=== PATIENT | female | born 1940 | race Caucasian/White ===

== ENCOUNTER → 2023-06-25 14:37 | Outpatient (REF) | payer OTHER, SELFPAY | LOC: HWRAD 14:37 | PROVIDERS: ATTENDING PHYSICIAN Family Medicine | DX: M25.552 Pain in left hip (principal) | CPT/HCPCS: 73502 ==

== ENCOUNTER → 2023-07-17 14:40 | Outpatient (REF) | payer OTHER, SELFPAY | LOC: HWWDC 14:40 | PROVIDERS: ATTENDING PHYSICIAN Obstetrics & Gynecology; FAMILY PHYSICIAN Family Medicine | DX: Z12.31 Encounter for screening mammogram for malignant neoplasm of breast (principal) | CPT/HCPCS: 77063; 77067 ==

== ENCOUNTER 2024-05-15 20:01 | Inpatient (IN) | payer OTHER, SELFPAY ==
[2024-05-15 14:32] VITALS: BP 179/76
--- NOTE | 2024-05-15 14:34 | ED.GENMED ---
ED Provider Triage
<Jay Jay Chin PA-C - Last Filed: 05/15/24 14:36>
-
Patient seen by provider in Triage?: Seen in Triage
84-year-old female presents for onset of confusion and difficulty controlling both hands and not knowing what is going on starting yesterday. She also notes intermittent left-sided headache. No thinners.
Patient is alert and answering questions at triage. Vital signs are stable. Will start workup with basic labs EKG and CT of head. Also ordered urinalysis
Patient evaluated by medical provider at triage but does warrant further assessment
History of Present Illness
<Jay Jay Chin PA-C - Last Filed: 05/15/24 14:36>
General
Chief Complaint: Change in Mental Status
Time Seen by Provider: 05/15/24 17:21
<Silvana Woodard MD - Last Filed: 05/15/24 22:50>
General
Source: patient
Exam Limitations: none
Nursing documentation reviewed up to this point in time: agreed with
History of Present Illness
History of Present Illness:
The patient is an 84-year-old female who reports that over the last 2 days, she has had difficulty performing simple tasks such as turning doorknobs and using the TV remote. Patient denies difficulty getting words out. She denies vision changes.
She reports she has had an intermittent left-sided headache. She denies difficulty walking. She has noticed some difficulty using her right hand but states it is not specifically weakness more of loss of coordination.
Past History
<Jay Jay Chin PA-C - Last Filed: 05/15/24 14:36>
Past History
ED Past Medical History: Cancer (Skin), HTN and Hypercholesterolemia
ED Past Surgical History: Tonsilectomy and Other (Vein stripping both legs, skin cancer removed from left leg, vein closure bilateral leg)
Social History
Tobacco: Former smoker
Alcohol: None
Drug: None
Personal:
Living: with family
<Silvana Woodard MD - Last Filed: 05/15/24 22:50>
Family History
Family History: Other
Review of Systems
<Silvana Woodard MD - Last Filed: 05/15/24 22:50>
Review of Systems
Allergies reviewed?: Yes
All Other Systems: ROS reviewed and negative except as documented in HPI and ROS
Constitutional: Reports no symptoms
EENT: Reports no symptoms
Respiratory: Reports no symptoms
Cardiac: Reports no symptoms
ABD/GI: Reports no symptoms
: Reports no symptoms
Musculoskeletal: Reports no symptoms
Skin: Reports no symptoms
Neurological: Reports headache
Endocrine: Reports no symptoms
Hematologic/Lymphatic: Reports no symptoms
Psychiatric: Reports no symptoms
Phy Exam
<Silvana Woodard MD - Last Filed: 05/15/24 22:50>
Physical Exam
Physical Exam:
Physical Exam
General: no apparent distress, not acutely ill
Neck: supple. no meningeal signs. normal psoterior pharynx
Heart: s1/s2 regular rate and rhythm, no murmur. equal radial pulses.
Lungs: no acute respiratory distress. clear bilaterally
Abdomen: normal bowel sounds. not tender. no CVAT
Neuro: alert and orientedx3. no focal neurological deficits, answers all questions appropriately. 5 out of 5 strength in all extremities without drift. Extraocular muscles intact. Names objects appropriately
Skin: no rash
Psychiatric: well kept. interactive and cooperative
Extremities: no edema. no calf tenderness. negative homans. good distal pulses
Course
<Jay Jay Chin PA-C - Last Filed: 05/15/24 14:36>
Orders/Labs/Results
Orders:
Orders
05/15/24 14:21
CT Head W/o Iv Contrast Urgent
Comment:
Reason For Exam: confusion
05/15/24 14:33
Electrocardiogram (*1) Urgent
Reason for Study: TIA/Stroke
EKG- Treatment ONCE
05/15/24 Dinner
Regular
At Your Request: Full Participation
Does patient need a safe tray?: No
Reason for opting out of Auto Service Instructor order writing: Provider Decision
05/15/24 16:32
Urinalysis Reflex To Culture Urgent
Date Specimen was Collected: 05/15/24
Time Specimen was Collected: 16:30
Urine Microscopic Reflex Cult Urgent
Urine Culture Urgent
FABRICE Source: U
Specimen Description:
Date Specimen was Collected: 05/15/24
Time Specimen was Collected: 16:30
05/15/24 17:03
Complete Blood Count/With Diff Urgent
Comprehensive Metabolic Panel Urgent
05/15/24 19:08
CT Head & Neck Angio W/wo IV Routine
Comment:
Reason For Exam: change in mental status and left ear/neck pain
05/15/24 19:09
Admit/Transfer Patient As Directed
Co-Sign Provider:
Level of Care: Inpatient admission
Assign to:: Telemetry
Physician / Group: Fani Villegas
Diagnosis: upper extremity fine motor difficulty of the hands, memory dysfunction, lef
Reason for Telemetry: Arrhythmia
Date to Stop Telemetry: 05/18/24
Time to Stop Telemetry: 11:00
Reason for Hospitalization: upper extremity fine motor difficulty of the hands, memory dysfunction, left
posterior headache, neck pain
Expected length of stay greater than two midnights?: Yes
ELOS- Estimated Length of Stay in days: 3
I certify the patient meets the requirements for IP care: Yes
05/15/24 19:10
Code Status As Directed
Resuscitation Status: Full Code
05/15/24 21:10
Acetaminophen [Tylenol] 650 mg PO Q4HPRN PRN
Guaifenesin [Mucinex] 600 mg PO HSPRN PRN
HydrALAZINE [Apresoline] 5 mg IV Q4HPRN PRN
05/15/24 21:10
NEUROLOGY CONSULT Routine
Consulting Provider: Kuldeep Fried
Was physician already notified: Yes
Activity As Directed
Activity Level: Out of Bed-Early Mobility
Obtain Records As Directed
Dates of Information to be Released: all
Type of Information Requested: Entire Record
Obtain Records from: [facility]
Pneumatic Compression Sleeves As Directed
Type: Knee high
Vital Signs As Directed
Frequency: Per unit guidelines
Weight As Directed
Frequency: Once
DX Deep Vein Thrombosis Video Routine
05/15/24 22:00
Losartan [Cozaar] 50 mg PO HS
Sciatiease 1 cap PO HS
05/16/24 06:00
Basic Metabolic Panel IN AM
Complete Blood Count/No Diff IN AM
05/16/24 08:00
Multivitamin [Theragran] 1 tablet PO DAILY
vitamin A-vitamin C-vit E-min 1 tablet PO DAILY
05/17/24 06:00
Basic Metabolic Panel IN AM
Complete Blood Count/No Diff IN AM
05/18/24 06:00
Basic Metabolic Panel IN AM
Complete Blood Count/No Diff IN AM
05/18/24 11:00
DC Protocol for Telemetry ONCE
Abnormal Lab Results
05/15/24 05/15/24
16:32 17:03
MCH 31.1 H pg
(27.0-31.0)
BUN 21 H mg/dl
(7-17)
Leukocyte Esterase Rfl Trace A
(Negative)
Urine Bacteria (Reflex) Moderate A
(Negative)
05/15/24 17:03
05/15/24 17:03
Vital Signs
Initial and Last Documented VS:
Initial Vital Signs
Temp Pulse Resp BP Pulse Ox
98.0 F 70 16 179/76 97
05/15/24 14:32 05/15/24 14:32 05/15/24 14:32 05/15/24 14:32 05/15/24 14:32
Last Documented Vital Signs
Temp Pulse Resp BP Pulse Ox
97.7 F 73 16 175/74 96
05/15/24 21:24 05/15/24 21:24 05/15/24 21:24 05/15/24 21:24 05/15/24 21:24
<Silvana Woodard MD - Last Filed: 05/15/24 22:50>
Orders/Labs/Results
Orders:
Orders
05/15/24 14:21
CT Head W/o Iv Contrast Urgent
Comment:
Reason For Exam: confusion
05/15/24 14:33
Electrocardiogram (*1) Urgent
Reason for Study: TIA/Stroke
EKG- Treatment ONCE
05/15/24 Dinner
Regular
At Your Request: Full Participation
Does patient need a safe tray?: No
Reason for opting out of Auto Service Instructor order writing: Provider Decision
05/15/24 16:32
Urinalysis Reflex To Culture Urgent
Date Specimen was Collected: 05/15/24
Time Specimen was Collected: 16:30
Urine Microscopic Reflex Cult Urgent
Urine Culture Urgent
FABRICE Source: U
Specimen Description:
Date Specimen was Collected: 05/15/24
Time Specimen was Collected: 16:30
05/15/24 17:03
Complete Blood Count/With Diff Urgent
Comprehensive Metabolic Panel Urgent
05/15/24 19:08
CT Head & Neck Angio W/wo IV Routine
Comment:
Reason For Exam: change in mental status and left ear/neck pain
05/15/24 19:09
Admit/Transfer Patient As Directed
Co-Sign Provider:
Level of Care: Inpatient admission
Assign to:: Telemetry
Physician / Group: Fani Villegas
Diagnosis: upper extremity fine motor difficulty of the hands, memory dysfunction, lef
Reason for Telemetry: Arrhythmia
Date to Stop Telemetry: 05/18/24
Time to Stop Telemetry: 11:00
Reason for Hospitalization: upper extremity fine motor difficulty of the hands, memory dysfunction, left
posterior headache, neck pain
Expected length of stay greater than two midnights?: Yes
ELOS- Estimated Length of Stay in days: 3
I certify the patient meets the requirements for IP care: Yes
05/15/24 19:10
Code Status As Directed
Resuscitation Status: Full Code
05/15/24 21:10
Acetaminophen [Tylenol] 650 mg PO Q4HPRN PRN
Guaifenesin [Mucinex] 600 mg PO HSPRN PRN
HydrALAZINE [Apresoline] 5 mg IV Q4HPRN PRN
05/15/24 21:10
NEUROLOGY CONSULT Routine
Consulting Provider: Kuldeep Fried
Was physician already notified: Yes
Activity As Directed
Activity Level: Out of Bed-Early Mobility
Obtain Records As Directed
Dates of Information to be Released: all
Type of Information Requested: Entire Record
Obtain Records from: [facility]
Pneumatic Compression Sleeves As Directed
Type: Knee high
Vital Signs As Directed
Frequency: Per unit guidelines
Weight As Directed
Frequency: Once
DX Deep Vein Thrombosis Video Routine
05/15/24 22:00
Losartan [Cozaar] 50 mg PO HS
Sciatiease 1 cap PO HS
05/16/24 06:00
Basic Metabolic Panel IN AM
Complete Blood Count/No Diff IN AM
05/16/24 08:00
Multivitamin [Theragran] 1 tablet PO DAILY
vitamin A-vitamin C-vit E-min 1 tablet PO DAILY
05/17/24 06:00
Basic Metabolic Panel IN AM
Complete Blood Count/No Diff IN AM
05/18/24 06:00
Basic Metabolic Panel IN AM
Complete Blood Count/No Diff IN AM
05/18/24 11:00
DC Protocol for Telemetry ONCE
Abnormal Lab Results
05/15/24 05/15/24
16:32 17:03
MCH 31.1 H pg
(27.0-31.0)
BUN 21 H mg/dl
(7-17)
Leukocyte Esterase Rfl Trace A
(Negative)
Urine Bacteria (Reflex) Moderate A
(Negative)
05/15/24 17:03
05/15/24 17:03
Vital Signs
Initial and Last Documented VS:
Initial Vital Signs
Temp Pulse Resp BP Pulse Ox
98.0 F 70 16 179/76 97
05/15/24 14:32 05/15/24 14:32 05/15/24 14:32 05/15/24 14:32 05/15/24 14:32
Last Documented Vital Signs
Temp Pulse Resp BP Pulse Ox
97.7 F 73 16 175/74 96
05/15/24 21:24 05/15/24 21:24 05/15/24 21:24 05/15/24 21:24 05/15/24 21:24
<Silvana Woodard MD - Last Filed: 05/15/24 22:50>
MDM/Problems Addressed
Differential Diagnosis Includes:
Acute CVA, hyponatremia, UTI
MDM/Problems Addressed:
Patient presents with acute cognitive abnormalities
Chronic conditions affecting care:
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
Acute Exacerbation and/or Progression of Chronic Illness:
Patient may have acute abnormality with her PROOF MACHINE OPERATOR SUPERVISOR shunt
<Silvana Woodard MD - Last Filed: 05/15/24 22:50>
*Radiology
Radiology exam reviewed: radiology read reviewed
*Pulse Oximetry
Patient hypoxic: no
*EKG
Interpreted by ED Provider?: Yes
Interpretation: abnormal
Comparison EKG: no changes
Rate: normal
Rhythm: sinus
[place]: left axis deviation
Interval: normal interval
QRS Pattern: normal QRS
Ischemia: non-specific ST changes
*Acoustical Carpenter Interpretation
Rate: normal
Interpretation: normal
Rhythm: sinus
*Critical Care Note
Total Time (30-74mins, 75-104mins- exclusive of procedures): Not Applicable
Data Reviewed
Review of Other/Old Records Reveals: Discharge Summary (Discharge summary reviewed from 2018 when patient was admitted for ataxia and normal pressure hydrocephalus)
Source: patient and family
<Silvana Woodard MD - Last Filed: 05/15/24 22:50>
Patient Management
Social determinants of health affecting care: Living situation and Strong social support
ED Attending Note
<Jay Jay Chin PA-C - Last Filed: 05/15/24 14:36>
-
Portions of this chart may have been created with voice recognition software.� Occasional wrong word or��sound alike� substitutions may have occurred due to the inherent limitations of voice recognition software.
Discharge Plan
Departure
Patient Disposition: Admit
Date of Disposition: 05/15/24
Time of Disposition: 18:18
Admit to: Telemetry
Presentation/result/management discussed w/ accepting MD/DO: Hospitalist
Patient with high blood pressure during this ER visit?: Yes
Condition: Good
Covid-19: Not Applicable
Discharge Problem:
Acute alteration in mental status
Interventions
Interventions:
*Risk Screen - Suicide Last Done: 05/15/24 14:32
*General Assessment Last Done: 05/15/24 14:32
ED- Fall Risk Assessment Last Done: 05/15/24 21:11
*ED COVID-19 Vaccine History Last Done: 05/15/24 14:32
*Nursing Disposition Last Done: 05/15/24 21:11
ED- Neurological Assessment Last Done: 05/15/24 16:35
ED Swallowing Screen Last Done: 05/15/24 20:43
Discharge Date and Time
Discharge Date/Time: 05/15/24 21:12
[2024-05-15 16:47] LABS: Urine Albumin Trace (Neg - Trace); Urine Bilirubin Negative (Negative); Urine Character Clear (Clear); Urine Color Yellow; Urine Glucose Negative (Negative); Urine Ketone Negative (Negative); Urine Leukocyte Trace (Negative); Urine Nitrite Negative (Negative); Urine Occult Blood Negative (Negative); Urine Specific Gravity 1.015 (<1.030); Urine Urobilinogen Negative (Neg - 1+)
[2024-05-15 16:59] LABS: Urine Red Blood Cell 0-2 /HPF (0-2); Urine Squamous Cell >30 /LPF (Few)
[2024-05-15 17:00] LABS: Urine Bacteria Moderate (Negative)
[2024-05-15 17:12] LABS: % Eosinophils 2.1 % (0-6); % Immature Granulocytes 0.1 % (0-0.5); % Lymphocytes 28.1 % (20.5-51.1); % Monocytes 3.3 % (1.7-9.3); % Neutrophils 65.4 % (42.2-75.2); Absolute Basophils 0.1 10^3/uL (0-0.2); Absolute Eosinophils 0.2 10^3/uL (0-0.7); Absolute Lymphocytes 2.3 10^3/uL (1.2-3.4); Absolute Monocytes 0.3 10^3/uL (0.1-0.6); Absolute Neutrophils 5.3 10^3/uL (1.4-6.5); Hematocrit 43.2 % (37.0-47.0); Hemoglobin 14.6 g/dL (12.0-16.0); Mean Corp Hgb Conc. 33.8 g/dL (33.0-37.0); Mean Corpuscular Hgb 31.1 pg (27.0-31.0); Mean Corpuscular Volume 91.9 fL (81.0-99.0); Mean Platelet Volume 10.1 fL (7.4-10.4); Nucleated Red Blood Cells % 0 %; Platelet Count 286 10^3/uL (130-400); Red Cell Dist. Width 11.8 % (11.5-14.5); White Blood Cell Count 8.1 10^3/uL (4.8-10.8)
[2024-05-15 17:30] LABS: ALT (SGPT) 34 U/L (0-35); AST (SGOT) 33 U/L (14-36); Albumin 4.7 g/dl (3.5-5.0); Alkaline Phosphatase 88 U/L (38-126); Blood Urea Nitrogen 21 mg/dl (7-17); Calcium 9.9 mg/dl (8.4-10.2); Carbon Dioxide 29 mmol/L (22-30); Chloride 103 mmol/L (98-107); Glucose 96 mg/dl (70-99); Potassium 4.4 mmol/L (3.5-5.1); Sodium 138 mmol/L (135-145); Total Bilirubin 0.4 mg/dl (0.2-1.3); Total Protein 7.3 g/dl (6.3-8.2); eGFR > 60.00
--- NOTE | 2024-05-15 18:24 | HPS.HSE ---
Family Physician
-
Family Physician: Alexia Pearson
Chief Complaint
-
confusion/change in mental status
History of Present Illness
Patient is a 84-year-old female with past medical history of hypertension, hypercholesterolemia, atherosclerosis of bilateral carotids and aorta, chronic kidney disease and osteopenia who presented to [place] ED after 1.5 days of confusion.
Patient explains that starting on morning she noticed that she was having difficulty performing simple tasks like turning door knob and using TV remote. Daughter also stated patient had difficultly using fork and knife and feeding herself
yesterday. Unable to clearly identify if dexterity issue is uni or bilateral. Patient denies any numbness, tingling, dizziness, weakness or slurred speech.
Medical History
Past Medical History
Past Medical History: Reports Other
Additional Past Medical History:
benign hypertension
hypercholesterolemia
atherosclerosis of bilateral carotids and aorta
chronic kidney disease
osteopenia
Normal pressure hydrocephalus
Past Surgical History: Reports Other
Additional Past Surgical History:
shunt in brain
MOHS to nose and leg
Social History
Tobacco: Former Smoker ('quit long time ago')
Alcohol: Former (drank wine nightly, 1 glass, stopped 2 years ago)
Drug: None
Personal:
Living: With Family
Employment: Retired
Family History
Family History: Other (Mother: Breast Ca; Father: cancer)
Allergies / Home Medications
Allergies reflects when Allergies were last updated in [facility].
Home Medications with original date entered in [facility]
Allergy/Medication List:
Allergies
Allergy/AdvReac Type Severity Reaction Status Date / Time
alveno skin cream Allergy Rash Uncoded 05/15/24 14:37
Home Medications
Sciatiease 1 cap PO HS 05/15/24
guaifenesin 600 mg tablet, extended release 12 hr (Mucinex) 600 mg PO HSPRN PRN congestion 05/15/24
losartan 50 mg tablet 50 mg PO HS 05/15/24
therapeutic multivitamin 1 tab PO DAILY 05/15/24
vitamin A-vitamin C-vit E-min tablet 1 tab PO DAILY 05/15/24
Review of Systems
-
History Source: Patient
Constitutional: Reports No Symptoms
EENT: Reports No Symptoms
Respiratory: Reports No Symptoms
Cardiac: Reports No Symptoms
Abdomen/GI: Reports No Symptoms
: Reports No Symptoms
Musculoskeletal: Reports No Symptoms
Skin: Reports No Symptoms
Neurological: Reports Other (unable to complete simple tasks)
Endocrine: Reports No Symptoms
Hematologic/Lymphatic: Reports No Symptoms
Psych: Reports No Symptoms
Physical Exam
Vital Signs
Vital Signs
Temp Pulse Resp BP Pulse Ox
98.0 F 70 16 179/76 97
05/15/24 14:32 05/15/24 14:32 05/15/24 14:32 05/15/24 14:32 05/15/24 14:32
Physical Exam
General: Well Developed, Well Nourished, No Apparent Distress, Comfortable and Conversant
HEENT: NormoCephalic, Moist mucous membranes, Atraumatic, PERRLA, [place] Conjunctivae, Nose Appears Normal and Ears Appear Normal
Respiratory: Clear and Non Labored Respirations
Cardiac: S1/S2 and Regular Rhythm; No Murmur, Rub or Gallop
Breast: Deferred by me
GI: Soft, Non Tender, Non Distended and Normal Bowel Sounds; No Organomegaly
Rectal: Deferred by Provider
Genito-urinary: Deferred by me
Musculoskeletal: No Clubbing, No Cyanosis and No Edema
Skin: Warm and IV/Catheter Site; No Rash
Neuro: Awake, Alert, AO x 3 and Nonfocal/grossly intact
Hematologic/Lymphatic: No Lymphadenopathy
Psych: Calm
Laboratory Results
-
05/15/24 17:03
05/15/24 17:03
Laboratory Results
Total Bilirubin 0.4 mg/dl (0.2-1.3) 05/15/24 17:03
AST 33 U/L (14-36) 05/15/24 17:03
ALT 34 U/L (0-35) 05/15/24 17:03
Alkaline Phosphatase 88 U/L (38-126) 05/15/24 17:03
Data Reviewed
-
CT Scan: Report Reviewed by me (Head: No acute intracranial abnormality noted. Mild periventricular small vessel ischemic disease. Stable Right EQUINE SCIENCE INSTRUCTOR shunt. Stable. Mild prominence of the ventricles without midline shift. Stable)
Medical Tests (Nuc Med, Echo, EKG etc): Report Reviewed by me (EKG: NORMAL SINUS RHYTHM)
Lab Data: Labs Reviewed by me
Impression/Plan
-
IMPRESSION/PLAN:
#upper extremity fine motor difficulty of the hands, memory dysfunction, left posterior headache, neck pain
Head CT: No acute intracranial abnormality noted.
Mild periventricular small vessel ischemic disease. Stable
Right EQUINE SCIENCE INSTRUCTOR shunt. Stable. Mild prominence of the ventricles without midline shift. Stable
- Admit to telemetry
- neurology consult
- obtain records from [facility]
- CTA head/neck
#benign hypertension
- continue losartan
- PRN hydralazine
#hypercholesterolemia
#atherosclerosis of bilateral carotids and aorta
#chronic kidney disease
BUN 21, Creat 0.8
#Normal pressure hydrocephalus
Head CT: No acute intracranial abnormality noted.
Mild periventricular small vessel ischemic disease. Stable
Right EQUINE SCIENCE INSTRUCTOR shunt. Stable. Mild prominence of the ventricles without midline shift. Stable
stable with shunt
- obtain records from [facility]
#osteopenia
Code Status: Full Code
DVT Prophylaxis: SCDs
--- NOTE | 2024-05-15 19:11 | W.PN.UPDATE ---
Update Note
Progress Note Update
This is an addendum to the H&P written by Sloane Guerra on 05/15/2024. Patient seen examined independently with CERAMICS TEACHER.
84-year-old female past medical history of hypertension, hypercholesteremia, normal pressure hydrocephalus status post shunt, CKD 3A, osteopenia, presenting with upper extremity fine motor difficulty of the hands, memory dysfunction, left posterior
headache, neck pain. No fevers. No gait dysfunction, vertigo, blurry vision or speech difficulty.
She has a history of normal pressure hydrocephalus with shunt placed in 2017. She is followed by neurology [place] recently had her shunt checked and was normal.
Blood pressure initially 179/76. Presentation not consistent with hypertensive encephalopathy.
CT head shows no acute abnormality. QUARTER SECTION IRONER shunt appears stable.
Unclear etiology of symptoms. Will check CTA head and neck to rule out carotid dissection given neck pain. Unclear whether patient can have MRI due to QUARTER SECTION IRONER shunt. Will need to obtain records from [place] neurology. Neurology consulted. As
needed hydralazine for elevated blood pressure.
[2024-05-15 20:43] VITALS: BP 159/56
[2024-05-15 21:24] VITALS: BP 175/74
[2024-05-15 21:25] VITALS: BMI 24.5
[2024-05-15] MEDS: APRESOLINE 5 MG IV (21:26)
[2024-05-15] MEDS: COZAAR 50 MG PO (21:26)
--- NOTE | 2024-05-15 21:40 | PTCARENOTE ---
Pt arrived from the ED via stretcher accompanied by family. Patient ambulated into the room with assistance. AAOx3 but forgetful, VSS. Blood pressure elevated. Given HS and PRN meds, see MAR. Patient and family addressed concerns of new right sided
weakness. Reporting the inability to use right hand properly when doing ADLs. Family also addressed concerns for the patients ability to express her words properly. This RN initiated an NIH stroke scale. Patient passed swallow screen. Right eye
sluggish to light. Pt explained that is normal for her. Patient/family educated on plan of care. Call perez is within reach.
[2024-05-15 23:05] VITALS: BP 156/67
[2024-05-16] VITALS (9 sets, daily range): BP systolic 121–176; BP diastolic 48–81; PULSE 80; O2SAT 97
--- NOTE | 2024-05-16 07:52 | CON.NEURO ---
Neuro Assessment/Plan
Assessment
Acute onset difficulty with right hand use and cognitive function
Differential diagnosis includes acute onset ischemic stroke, not visualized by head CT, also focal onset seizures, also ventriculoperitoneal shunt dysfunction (least likely)
Plan
Check MRI of brain to ensure no intracranial lesion producing symptomatology
If needed for MRI of brain, consult neurosurgery to follow and ensure shunt displacement does not take place
Provide lorazepam 1 hour prior to MRI if needed
Check blood work for potential metabolic causes
Initiate aspirin 81 mg daily until clarity regarding the possibility of stroke
Check lipid profile, if LDL greater than 70, initiate atorvastatin 40 mg daily
Rehabilitation evaluations including physical therapy, Occupational Therapy, and speech therapy
Will follow
Consultation
Order
Date of Consultation: 05/16/24
Requesting Provider: Hospitalists
Reason for Consult: Hand dysfunction
Subjective/Objective
Subjective Data
Date of Service: May 16, 2024
Right-Handed
Patient presented to this hospital's emergency department on May 15, 2024 for after 24 hours of having difficulty with manipulating objects with her hands. Right hand issue greater than the left, worsening over time.
Problem was described as difficulty with picking up objects and difficulty with performing activities including cooking dinner for Alexis.
Patient has a longstanding history of a ventriculoperitoneal shunt which according to the patient was evaluated recently and she was told it was functioning without issue. Specifically, according to medical records, in March 2024, the patient
fell and was evaluated at [facility] at which time she underwent imaging and was seen by subspecialists in the field of neurosurgery, presumably. The patient was told that she had no significant issues at that time with regards to
her shunt. Patient at that time was told that her blood pressure was excessively high.
No prior issues with the right hand.
Objective Data
Vital Signs
Temp Pulse Resp BP Pulse Ox
36.9 C 70 16 125/69 93
05/16/24 03:52 12/27/24 03:52 05/16/24 03:52 05/16/24 03:52 05/16/24 03:52
Sodium 138 mmol/L (135-145) 05/15/24 17:03
Potassium 4.4 mmol/L (3.5-5.1) 05/15/24 17:03
BUN 21 mg/dl (7-17) H 05/15/24 17:03
Glucose 96 mg/dl (70-99) 05/15/24 17:03
Calcium 9.9 mg/dl (8.4-10.2) 05/15/24 17:03
Patient Allergies
alveno skin cream Allergy (Uncoded 05/15/24 14:37)
Rash
Review of Systems
-
History Source: Patient
All other systems: Reviewed and negative
EENT: Negative Decreased Vision or Swallowing Difficulty
Respiratory: Negative Trouble Breathing
Cardiac: Negative Chest Pain
Abdomen/GI: Negative Incontinence of Stool
Genitourinary: Negative Incontinence
Musculoskeletal: Negative Back Pain or Neck Pain
Neuro: Headache and Other (Memory loss); Negative Dizzy
Physical Exam
-
General: No Apparent Distress and Appears Stated Age
Eyes: OU Absent Papilledema, Round OU, Blende Conjunctivae and No Ptosis
HEENT: Anicteric and Moist Mucous Membranes
Neck: Full Range of Motion
Respiratory: No Dyspnea
Cardiac: No JVD
GI: Non-distended
Skin: Unremarkable
Extremities: No Clubbing, No Cyanosis and No Edema
Psych: Intact Judgement/Insight
Extended Neurological Exam
Mood & Affect: Mood Unremarkable and Affect Unremarkable
Attention Span & Concentration: Awake, Alert, Interactive and Moderate Difficulty with 2 Step Request
Memory: Unremarkable, Able to Recall (Month and eventually year) and Vague
Tremor: Hand Tremor Absent and Head Tremor Absent
Speech: Quality Unremarkable and Quantity Unremarkable
Cranial Nerve II: Left Eye: Pupillary Reactivity Unremarkable, Pupillary Size Unremarkable and Visual Quintanilla Intact
Cranial Nerve II: Right Eye: Pupillary Reactivity Unremarkable, Pupillary Size Unremarkable and Visual Quintanilla Intact
Cranial Nerves III, IV, : Extraocular Movement: Extraocular Movement Full in all Directions
Cranial Nerve VII: Facial Symmetry: Normal Facial Symmetry
Cranial Nerve VIII: Hearing: Unremarkable Hearing to Normal Conversational Volume
Cranial Nerves IX, X: Palate Movement: Palate Elevation Symmetric
Cranial Nerve XI: Shoulder Shrug: Unremarkable
Cranial Nerve XII: Tongue Protusion: Midline
Muscle Strength, Overall: Full Throughout
Muscle Bulk & Tone: Bulk Unremarkable and Tone Unremarkable
Pronator Drift: No Drift in Upper Extremities and No Drift in Lower Extremities
Deep Tendon Reflexes: Trace Throughout
Touch Sensation: Unremarkable
Coordination: Hbacse-lhgs-fypeum Testing Unremarkable and MONICA Satellites around Right; Negative MONICA Satellites around Left
Babinski Sign: Absent Bilaterally
Data Reviewed
-
CT Head: Report Reviewed and Image Reviewed
MRI Head: Ordered and Pending
Labs: Ordered and Report Reviewed
Reviewed with: Physician, Nurse Practioner and Patient
Medications
-
Active Medications
Generic Name Dose Route Start Last Admin
Trade Name Freq PRN Reason Stop Dose Admin
Acetaminophen 650 mg 05/15/24 21:10
Acetaminophen 325 Mg Tablet PO 06/12/24 21:09
Q4HPRN PRN
mild pain/WORLEY/temp> 100.4F
Guaifenesin 600 mg 05/15/24 21:10
Guaifenesin 600 Mg Extended Release Tablet PO 06/12/24 21:09
HSPRN PRN
congestion
Hydralazine HCl 5 mg 05/15/24 21:10 05/15/24 21:26
Hydralazine 20 Mg/Ml Vial IV 06/12/24 21:09 5 mg
Q4HPRN PRN Administration
SBP >160 and DBP>110
Losartan Potassium 50 mg 05/15/24 22:00 05/15/24 21:26
Losartan 50 Mg Tablet PO 06/12/24 21:59 50 mg
HS TANIA Administration
Multivitamins Therapeutic 1 tablet 05/16/24 08:00
Multivitamin Tablet PO 06/13/24 07:59
DAILY TANIA
Sodium Chloride 0 flush 05/15/24 22:00
Sodium Chloride 0.9% (Flush) Syringe IV 06/12/24 21:59
PER PROTOCOL TANIA
Home Medications
�Medication �Instructions �Recorded
Sciatiease 1 cap PO HS 05/15/24
guaifenesin 600 mg tablet, 600 mg PO HSPRN PRN congestion 05/15/24
extended release 12 hr (Mucinex)
losartan 50 mg tablet 50 mg PO HS 05/15/24
therapeutic multivitamin 1 tab PO DAILY 05/15/24
vitamin A-vitamin C-vit E-min 1 tab PO DAILY 05/15/24
tablet
Past History
Past History
ED Past Medical History: Cancer (Squamous cell carcinoma of the skin), HTN, Hypercholesterolemia and Other (Normal pressure hydrocephalus)
ED Past Surgical History: Brain (Ventriculoperitoneal shunt 2018), Tonsilectomy and Other (Vein stripping both legs, skin cancer removed from left leg, vein closure bilateral leg)
Social History
Tobacco: Former smoker
Alcohol: None
Drug: None
Personal:
Living: with family
Family History
Family History: Other
[2024-05-16 08:43] LABS: Hematocrit 44.7 % (37.0-47.0); Hemoglobin 14.7 g/dL (12.0-16.0); Mean Corp Hgb Conc. 32.9 g/dL (33.0-37.0); Mean Corpuscular Hgb 30.9 pg (27.0-31.0); Mean Corpuscular Volume 94.1 fL (81.0-99.0); Mean Platelet Volume 10.4 fL (7.4-10.4); Platelet Count 296 10^3/uL (130-400); Red Blood Cell Count 4.75 10^6/uL (4.20-5.40); Red Cell Dist. Width 11.9 % (11.5-14.5); White Blood Cell Count 7.7 10^3/uL (4.8-10.8)
[2024-05-16 09:05] LABS: Blood Urea Nitrogen 18 mg/dl (7-17); Calcium 9.5 mg/dl (8.4-10.2); Carbon Dioxide 27 mmol/L (22-30); Chloride 103 mmol/L (98-107); Estimated Creatinine Clearance 42 ml/min; Glucose 107 mg/dl (70-99); Sodium 137 mmol/L (135-145); eGFR > 60.00
[2024-05-16 09:10] LABS: Potassium 4.2 mmol/L (3.5-5.1)
[2024-05-16 09:36] LABS: Erythrocyte Sed Rate 15 mm/hour (0-20)
--- NOTE | 2024-05-16 10:19 | W.PN.HOSP.TC ---
Today's Communication/Plan
-
see A/P
Assessment / Plan
Assessment / Plan
HPI: 84-year-old female past medical history of hypertension, hypercholesteremia, normal pressure hydrocephalus status post shunt, CKD 3A, osteopenia, presented with upper extremity fine motor difficulty of the hands, memory dysfunction, left
posterior headache, neck pain.
She c/o unable to write since 05/14, associated with intermittent headache.
No fevers. No gait dysfunction, vertigo, blurry vision or speech difficulty.
She has a history of normal pressure hydrocephalus with shunt placed in 2017. She is followed by neurology [place] and recently had her shunt checked and was normal.
Blood pressure initially 179/76. Presentation not consistent with hypertensive encephalopathy.
A/P:
# upper extremity fine motor difficulty of the hands, memory dysfunction, left posterior headache, neck pain
Head CT No acute intracranial abnormality noted. 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 Stable
CT head and neck angio also No acute pathology identified.
Check MRI brain
neurology on board
obtain records from [facility]
# benign hypertension
continue losartan with holding parameter
PRN hydralazine
# Hypercholesterolemia
# atherosclerosis of bilateral carotids and aorta
# Normal pressure hydrocephalus s/p Right HIGH SCHOOL SPECIAL EDUCATION TEACHER shunt.
Neurosurgery consulted to follow along given presence of HIGH SCHOOL SPECIAL EDUCATION TEACHER shunt
# osteopenia
Code Status: Full Code
DVT Prophylaxis: SCDs
DORETHA RN
updated daughter on the phone
DW Neuro and neurosurgery
total time spent 51 min
Anticipated Discharge: 24 - 48 hours
Subjective/Interval History
-
Date of Service: May 16, 2024
Objective Data
-
Labs:
Laboratory Results
05/16/24
07:58
WBC 7.7
Hgb 14.7
Hct 44.7
Plt Count 296
Sodium 137
Potassium 4.2
Chloride 103
Carbon Dioxide 27
BUN 18 H
Creatinine 0.8
Glucose 107 H
Calcium 9.5
Vital Signs:
Vital Signs
Temp Pulse Resp BP Pulse Ox
36.8 C 66 18 139/62 95
05/16/24 07:10 05/16/24 07:10 05/16/24 07:10 05/16/24 07:10 05/16/24 07:10
I&O
05/15/24 05/16/24 05/17/24
06:59 06:59 06:59
Intake Total 480 / 480 300 / 300
Balance 480 / 480 300 / 300
Review of Systems
-
Neuro: Reports Headache (intermittent) and Other (unable to write)
Physical Exam
-
General: Well Developed, Well Nourished, No Apparent Distress, Comfortable and Conversant; Negative Respiratory Distress
HEENT: Normocephalic, Atraumatic, Nose Appears Normal and Ears Appear Normal; Negative Oxygen
Respiratory: Clear to Auscultation and Non Labored Respirations; Negative Accessory Resp Muscle Use
Cardiac: Regular Rhythm and S1/S2
GI: Soft, Nontender, Nondistended and Normal Bowel Sounds
Skin: Warm and Dry
Neuro: Awake and Alert; Negative Slurred Speech or Facial Droop
Psych: Calm and Intact Judgement/Insight
Data Reviewed
-
CT Scan: Report Reviewed by me and Discussed with Family
Labs: Labs Reviewed by me
[2024-05-16 11:04] LABS: HDL Cholesterol 88 mg/dl; LDL Cholesterol, Calculated 114 mg/dl; Total Cholesterol 226 mg/dl (50-199); Triglyceride 120 mg/dl (10-149); Very Low Density Lipoprotein 24 mg/dl (0-30)
[2024-05-16 11:05] LABS: TSH Reflex To Free T4 1.42 uIU/ml (0.47-4.68)
[2024-05-16 11:41] LABS: Folate > 20.0 ng/ml (2.76-20); Vitamin B12 834 pg/ml (239-931)
--- NOTE | 2024-05-16 14:06 | W.PN.UPDATE ---
Addendum entered and electronically signed by Kuldeep Fried MD 05/16/24 14:40:
Patient was not a candidate for tenecteplase or intra-arterial thrombectomy due to timeframe out of window, as well as NIH stroke scale was 0
Original Note:
Update Note
Progress Note Update
MRI of brain demonstrated subacute lacunar ischemic infarcts involving the left parieto-occipital lobe. Sequential skull x-rays demonstrated no shift to the patient's known ventriculoperitoneal shunt.
Initiate aspirin and clopidogrel, maintain both for 21 days then aspirin alone
Start atorvastatin 40 mg daily
Will follow peripherally
[2024-05-16] MEDS: ASPIR LOW (ENTERIC COATED) 81 MG PO (14:19)
[2024-05-16] MEDS: PLAVIX 75 MG PO (14:20)
--- NOTE | 2024-05-16 14:26 | W.PN.UPDATE ---
Update Note
Progress Note Update
Xrays pre and post MRI show stable setting on Strata NSC valve of PL 1.0
there is no need to reprogram
neurosurgery will sign off
--- NOTE | 2024-05-16 15:12 | PTOTSP ---
SPEECH THERAPY SWALLOW/SPEECH/LANGUAGE/COGNITIVE COMMUNICATION EVALUATION:
Patient exhibits grossly functional oropharyngeal swallow at this time. No history of dysphagia noted. Patient remains at risk for dysphagia/aspiration given confusion, impulsivity, and reduced safety awareness due to acute CVA. Recommend continue
Regular texture solids, thin liquids with strict aspiration precautions in place. Medications whole with liquid as best tolerated. Aspiration precautions: 100% supervision with meals; Assistance as needed for set-up and self-feeding; Upright
positioning; Monitor rate of intake; Ensure patient swallows prior to next bite; Small single sips/bites; Slow rate of intake; Monitor for signs of aspiration; D/c oral diet if any decline in mental or respiratory status. Oral care 3x/day and
increased mobility as able/tolerated to reduce risk for nosocomial infection. ST to follow, assess diet tolerance and modify as appropriate, determine indication for VSE if appropriate, and provide continued diagnostic swallow therapy as
appropriate.
Patient exhibits mild speech, Mild-moderate expressive language, Moderate receptive language, and Moderate cognitive communication impairments characterized by: Receptive aphasia, Expressive aphasia, anomia during structured tasks and conversation,
apraxia, reduced STM, reduced safety awareness/insight into deficits, Impulsivity, Reduced auditory comprehension including ability to follow 2-3 step directions, Reduced reasoning skills, Reduced object function/recognition, significant agraphia,
reduced visuospatial skills, reduced ability to complete executive functioning tasks, and reduced problem solving skills. Impairments likely acutely related to acute/subacute CVA. Skilled ST services for speech/language/cognitive communication are
indicated at the acute care level and recommended to continue upon discharge. Recommend further assessment into higher level Executive functioning tasks, reading, and visuospatial skills during ST services.
RECOMMEND:
1) Regular texture diet, thin liquids
2) Medications whole with liquid as best tolerated
3) Aspiration precautions: 100% supervision with meals; Assistance as needed for set-up and self-feeding; Upright positioning; Monitor rate of intake; Ensure patient swallows prior to next bite; Small single sips/bites; Slow rate of intake; Monitor
for signs of aspiration; D/c oral diet if any decline in mental or respiratory status
4) Oral care 3x/day and increased mobility as able/tolerated
5) ST services to follow at the acute care level and recommended upon discharge
[2024-05-16] MEDS: LIPITOR 40 MG PO (17:23)
[2024-05-16] MEDS: COZAAR 50 MG PO (20:20)
[2024-05-17 03:50] VITALS: BP 124/64
[2024-05-17 08:11] LABS: Hematocrit 41.6 % (37.0-47.0); Hemoglobin 14.2 g/dL (12.0-16.0); Mean Corp Hgb Conc. 34.1 g/dL (33.0-37.0); Mean Corpuscular Hgb 31.1 pg (27.0-31.0); Mean Corpuscular Volume 91.2 fL (81.0-99.0); Mean Platelet Volume 10.4 fL (7.4-10.4); Platelet Count 269 10^3/uL (130-400); Red Blood Cell Count 4.56 10^6/uL (4.20-5.40); White Blood Cell Count 8.5 10^3/uL (4.8-10.8)
[2024-05-17 08:32] LABS: Blood Urea Nitrogen 24 mg/dl (7-17); Calcium 9.4 mg/dl (8.4-10.2); Carbon Dioxide 23 mmol/L (22-30); Chloride 103 mmol/L (98-107); Estimated Creatinine Clearance 38 ml/min; Glucose 104 mg/dl (70-99); Potassium 4.1 mmol/L (3.5-5.1); Sodium 138 mmol/L (135-145); eGFR > 60.00
[2024-05-17] MEDS: PLAVIX 75 MG PO (08:38)
[2024-05-17] MEDS: ASPIR LOW (ENTERIC COATED) 81 MG PO (08:38)
[2024-05-17 08:46] VITALS: BP 150/89
[2024-05-17 09:06] LABS: Glycohemoglobin (HgbA1c) 5.9 % (4.0-5.6)
[2024-05-17 11:30] VITALS: BP 137/59; PULSE 69; O2SAT 94
--- NOTE | 2024-05-17 11:32 | W.PN.HOSP.TC ---
Addendum entered and electronically signed by Vaishnavi Shultz MD 05/17/24 14:38:
total DC time 38 min
Original Note:
Today's Communication/Plan
-
see A/P
Assessment / Plan
Assessment / Plan
HPI: 84-year-old female past medical history of hypertension, hypercholesteremia, normal pressure hydrocephalus status post shunt, CKD 3A, osteopenia, presented with upper extremity fine motor difficulty of the hands, memory dysfunction, left
posterior headache, neck pain.
She c/o unable to write since 05/14, associated with intermittent headache.
No fevers. No gait dysfunction, vertigo, blurry vision or speech difficulty.
She has a history of normal pressure hydrocephalus with shunt placed in 2017. She is followed by neurology [facility] and recently had her shunt checked and was normal.
Blood pressure initially 179/76. Presentation not consistent with hypertensive encephalopathy.
A/P:
# upper extremity fine motor difficulty of the hands, memory dysfunction, left posterior headache, neck pain; 2/[address] No acute intracranial abnormality noted. Right COLLATOR OPERATOR shunt. Stable
CT head and neck angio also No acute pathology identified.
MRI brain noted left parietal lobe acute to subacute infarction
neurology on board
ASA, plavix for 21 days, then ASA after that. Pt and family informed
Echo neg for intracardiac mass or thrombus
LDL at 114, started Lipitor 40 mg HS
A1c 5.9%
Recc outpt PCP or customer associate for holter monitor
# benign hypertension
continue losartan with holding parameter
PRN hydralazine
# Hypercholesterolemia
# atherosclerosis of bilateral carotids and aorta
LDL at 114, started Lipitor 40 mg HS
# Normal pressure hydrocephalus s/p Right COLLATOR OPERATOR shunt.
Neurosurgery consulted to follow along given presence of COLLATOR OPERATOR shunt
# osteopenia
Code Status: Full Code
DVT Prophylaxis: SCDs
DW son at bedside
Anticipated Discharge: Today
Subjective/Interval History
-
Date of Service: May 17, 2024
Objective Data
-
Labs:
Laboratory Results
05/16/24 05/17/24
07:58 07:19
WBC 7.7 8.5
Hgb 14.7 14.2
Hct 44.7 41.6
Plt Count 296 269
Sodium 138
Potassium 4.1
Chloride 103
Carbon Dioxide 23
BUN 24 H
Creatinine 0.9
Glucose 104 H
Calcium 9.4
Vital Signs:
Vital Signs
Temp Pulse Resp BP Pulse Ox
36.6 C 75 18 150/89 96
05/17/24 08:46 05/17/24 08:46 05/17/24 08:46 05/17/24 08:46 05/17/24 08:46
I&O
05/16/24 05/17/24 05/18/24
06:59 06:59 06:59
Intake Total 480 / 480 1080 / 1080
Balance 480 / 480 1080 / 1080
Review of Systems
-
Neuro: Reports Other (unable to write); Denies Headache
Physical Exam
-
General: Well Developed, Well Nourished, No Apparent Distress, Comfortable and Conversant; Negative Respiratory Distress
HEENT: Normocephalic, Atraumatic, Nose Appears Normal and Ears Appear Normal; Negative Oxygen
Respiratory: Clear to Auscultation and Non Labored Respirations; Negative Accessory Resp Muscle Use
Cardiac: Regular Rhythm and S1/S2
GI: Soft, Nontender, Nondistended and Normal Bowel Sounds
Skin: Warm and Dry
Neuro: Awake and Alert; Negative Slurred Speech or Facial Droop
Psych: Calm and Intact Judgement/Insight
Data Reviewed
-
CT Scan: Report Reviewed by me and Discussed with Family
Labs: Labs Reviewed by me
[2024-05-17 12:08] VITALS: BP 123/77
--- NOTE | 2024-05-17 12:16 | CM ---
CM following re: discharge planning.
reviewed pt's chart, met with pt and pt's son at bedside.
Pt is an 84 year old female, admitted with primary dx of upper extremity fine motor difficulty of the hands, memory dysfunction, left posterior headache, neck pain.
Pt reports she lives with [facility], 3 steps to enter, has 2 supportive children. pt described herself as independent in all areas [employer].
PT and OT evaluations noted - outpatient PT/OT recommended. Both pt and her son are aware, expressed their agreement. A script for outpatient therapy provided.
PCP: Jeffrey Longoria
Pharmacy: [facility]
Discharge order noted. Both pt and her son are aware, expressed their agreement. IMM reviewed, placed on chart, pt has a copy.
D/C plan: home with outpatient PT/OT at . Son to transport.
--- NOTE | 2024-05-17 14:28 | W.DCSUMMARY ---
Discharge Summary
Discharge Data
Date of Admission: 05/15/24
Date of Discharge: 05/17/24
-
Pending Results: No
Hospital Course
Principal Diagnosis:
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
Chronic Diagnoses:�
Benign hypertension
Hypercholesterolemia
Normal pressure hydrocephalus s/p Right SAP ABAP PROGRAMMER shunt.
Osteopenia
Consultations:�
Neurology
Neurosurgery
Procedures:�
None
Clinical course:�
This is a 84-year-old female with past medical history as stated above, who presented with right hand difficulty with writing. She also complained of mild intermittent headache and some memory dysfunction.
Problem 1:
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
Her CT head, CT angio head and neck were unrevealing, noted chronic right SAP ABAP PROGRAMMER shunt.
Her MRI brain noted left parietal lobe acute to subacute infarction.
She was started with dual antiplatelet therapy with aspirin and Plavix for total 21 days, then to continue with aspirin after that.
Her LDL was checked which was part of the stroke workup, and it was noted to be high at 114.
She was started with Lipitor 40 mg at bedtime which she can continue going forward.
Her A1c was within normal limit at 5.9%.
Her echo was negative for intracardiac mass or thrombus.
She has been informed to follow-up with her PCP or cardiology for outpatient Holter to be set up.
As for the rest of her medical problems, they were stable during her hospital stay.
Discharge Plan
-
Patient Disposition: Home with Home Care
Discharge Diagnosis/Procedures: Right hand fine motor difficulty due to left parietal lobe acute to subacute infarction
Condition: Fair
Diet: As tolerated, Low Fat, Low Cholesterol and Low Sodium
Activity: As tolerated
Driving Restrictions: Not until seen by your Dr
Blood Work: Follow up Lipid panel in 3 months with your PCP (LDL 114 this admission)
Activity Restrictions/Additional Instructions:
Follow up with your PCP or shoe designer outpatient for Holter (cardiac) monitor for cardiac arrhythmia evaluation in setting of your acute stroke.
Referrals:
Alexia Pearson MD [Family Provider] - in less than 1 week
Additional Discharge Medication Instructions: Continue ASA and plavix for 21 days, then ASA after that.
Continue Lipitor 40 mg (LDL at 114)
Prescriptions:
New
aspirin 81 mg Tablet,Delayed Release (Dr/Ec)
81 mg PO DAILY Qty: 30 0RF
atorvastatin 40 mg Tablet
40 mg PO QPM Qty: 30 0RF
clopidogrel 75 mg Tablet
75 mg PO DAILY 20 Days Qty: 20 0RF
Continued
losartan 50 mg Tablet
50 mg PO HS
therapeutic multivitamin Tablet
1 tab PO DAILY
vitamin A-vitamin C-vit E-min Tablet
1 tab PO DAILY
guaifenesin [Mucinex] 600 mg Tablet Extended Release 12hr
600 mg PO HSPRN PRN (Reason: congestion)
Sciatiease
1 cap PO HS
Discharge Orders:
Discharge Patient (As Directed); Ordered 05/17/24
Ordered By: Vaishnavi Shultz
Discharge Date and Time
Discharge Date/Time: 05/17/24 13:15
Print Language: IVORIAN
== END 2024-05-17 13:15 | disposition home or self-care (01) | DRG 65 ==
LOC: 4 EAST ACU 20:01
PROVIDERS: Nurse Practitioner Family; Physician Assistant; ADMITTING PHYSICIAN Hospitalist; ATTENDING PHYSICIAN Internal Medicine; CONSULT PHYSICIAN Psychiatry & Neurology Neurology; EMERGENCY PHYSICIAN Emergency Medicine; FAMILY PHYSICIAN Family Medicine
DX: I63.9 Cerebral infarction, unspecified (principal); G91.2 (Idiopathic) normal pressure hydrocephalus; Z87.891 Personal history of nicotine dependence; I12.9 Hypertensive chronic kidney disease with stage 1 through stage 4 chronic kidney disease, or unspecified chronic kidney disease; E78.00 Pure hypercholesterolemia, unspecified; M85.80 Other specified disorders of bone density and structure, unspecified site; N18.31 Chronic kidney disease, stage 3a
CPT/HCPCS: 70250; 70450; 70496; 70498; 70553; 80048; 80053; 80061; 81003; 81015; 82607; 82728; 82746; 83036; 84443; 85025; 85027; 85652; 87086; 92523; 92610; 93005; 93306; 97116; 97162; 97166; 97530; 97535; 99285; Q9967

== ENCOUNTER 2024-05-20 06:44 | Outpatient (RCR) | payer OTHER, SELFPAY | END 2024-05-20 23:59 | disposition home or self-care (01) | LOC: RPT 06:44 | PROVIDERS: ATTENDING PHYSICIAN Family Medicine | DX: I69.328 Other speech and language deficits following cerebral infarction (principal); I69.321 Dysphasia following cerebral infarction; Z73.6 Limitation of activities due to disability | CPT/HCPCS: 92523 ==

== ENCOUNTER 2024-06-20 12:52 | Outpatient (RCR) | payer OTHER, SELFPAY | END 2024-06-20 23:59 | disposition home or self-care (01) | LOC: RPT 12:52 | PROVIDERS: ATTENDING PHYSICIAN Family Medicine | DX: I69.328 Other speech and language deficits following cerebral infarction (principal); I69.321 Dysphasia following cerebral infarction; Z73.6 Limitation of activities due to disability | CPT/HCPCS: 92507; 97110; 97112; 97116; 97530; 97535; 97537 ==

== ENCOUNTER 2024-07-05 13:34 | Emergency (ER) | payer OTHER, SELFPAY ==
[2024-07-05 13:40] VITALS: BP 153/61
--- NOTE | 2024-07-05 17:06 | ED.GENMED ---
History of Present Illness
General
Chief Complaint: Musculo-Skeletal Complaint
Source: patient
Exam Limitations: none
Time Seen by Provider: 07/05/24 16:38
Nursing documentation reviewed up to this point in time: agreed with
History of Present Illness
History of Present Illness:
Patient is an 84-year-old female with history CVA, hypertension, hyperlipidemia presenting to the emergency department for evaluation of atraumatic left knee pain. Patient states that last night she had pain in her left knee that woke her from
sleep. Pain has been intermittent in nature since and currently patient is pain-free. Patient is having no difficulties ambulating. Patient was concerned given she felt that her veins in that left knee/leg seemed more 'prominent' and was
concerned that she may have a blood clot. Patient denies any swelling, redness, warmth of left knee. No numbness/tingling of left lower extremity. No known traumatic injury. Denies any associated chest pain or shortness of breath. No fevers.
Past History
Past History
ED Past Medical History: Cancer (Squamous cell carcinoma of the skin), HTN, Hypercholesterolemia and Other (Normal pressure hydrocephalus)
ED Past Surgical History: Brain (Ventriculoperitoneal shunt 2018), Tonsilectomy and Other (Vein stripping both legs, skin cancer removed from left leg, vein closure bilateral leg)
Social History
Tobacco: Former smoker
Alcohol: None
Drug: None
Personal:
Living: with family
Family History
Family History: Other
Review of Systems
Review of Systems
Allergies reviewed?: Yes
All Other Systems: ROS reviewed and negative except as documented in HPI and ROS
Phy Exam
Physical Exam
Physical Exam:
Vitals: Hypertensive, otherwise stable vital signs. Afebrile
General: Patient is well appearing, no acute distress
Skin: Warm and dry, no rashes or lesions
Head: Normocephalic, atraumatic
Throat: Protecting airway
Neck: Normal ROM, no cervical spine tenderness
Cardiac: Regular rate
Pulm: No apparent respiratory distress
Abdomen: Nondistended
Extremities: No obvious deformity or effusion of left knee. No reproducible tenderness to left knee. No erythema or warmth of left knee or left lower extremity. No joint line tenderness. Patient has excellent range of motion of left knee, left
ankle, and left hip without pain. Palpable DP pulse of left lower extremity. Cap refill WNL. Varicose veins scattered on LLE
Neuro: Grossly intact
Psychiatric: Normal affect.
Course
Orders/Labs/Results
Orders:
Orders
07/05/24 16:55
Knee, Left 4 or More Views [CR Knee - Left 4 Or More View*] Urgent
Comment:
Reason For Exam: Atraumatic left knee pain
US Legs, Left [US Periph Venous LOWER Ext LT] Urgent
Comment: Varicose veins
Reason For Exam: atraumatic left knee pain
07/05/24 19:46
Jorgito Wrap Left-Treatment ONCE
Vital Signs
Initial and Last Documented VS:
Initial Vital Signs
Temp Pulse Resp BP Pulse Ox
98.2 F 69 18 153/61 98
07/05/24 13:40 07/05/24 13:40 07/05/24 13:40 07/05/24 13:40 07/05/24 13:40
Last Documented Vital Signs
Temp Pulse Resp BP Pulse Ox
98.2 F 64 16 134/69 97
07/05/24 13:40 07/05/24 18:44 07/05/24 18:44 07/05/24 18:44 07/05/24 18:44
MDM/Problems Addressed
Differential Diagnosis Includes:
Not limited to: Varicose veins, knee sprain, DVT, meniscal injury, Schofield's cyst, etc.
MDM/Problems Addressed:
84-year-old female with atraumatic left knee pain intermittently since last night. Patient currently asymptomatic without pain. No difficulties ambulating. No fevers, chest pain, or shortness of breath. Patient mildly hypertensive, otherwise
with stable vital signs. Physical exam as above. No evidence of deformity or effusion of left knee. There are notable varicose veins of the left lower extremity and on knee. Negative Homans' sign. No erythema, warmth to suggest infectious or
cellulitic process. Feel septic arthritis extremely unlikely given patient has excellent range of motion without pain and no evidence of infection. Will obtain x-ray of left knee and ultrasound to rule out DVT although feel this is unlikely.
Update: Knee x-ray reviewed by me which shows no evidence of acute fracture or knee effusion. Ultrasound report shows no evidence of DVT of LLE. On reassessment-remains asymptomatic in no discomfort. Symptoms possibly due to varicose veins. Feel
patient stable for discharge home with primary care follow-up and return precautions. She is ambulating without difficulty. Patient will monitor closely for signs infection, worsening symptoms. Discussed possibly repeat ultrasound in 1 week if
symptoms persist/worsen. Patient comfortable with current plan. Discussed with attending physician
Chronic conditions affecting care:
Hypertension
Acute Exacerbation and/or Progression of Chronic Illness:
Acutely hypertensive
*Radiology
Radiology exam reviewed: preliminary read by ED provider (Knee x-ray reviewed by me-no acute fracture or effusion) and radiology read reviewed
*Pulse Oximetry
Patient hypoxic: no
*EKG
Interpreted by ED Provider?: NA
*Clothing Designer Interpretation
Rate: Clothing Designer- N/A
*Critical Care Note
Total Time (30-74mins, 75-104mins- exclusive of procedures): Not Applicable
ED Attending Note
-
Portions of this chart may have been created with voice recognition software.� Occasional wrong word or��sound alike� substitutions may have occurred due to the inherent limitations of voice recognition software.
Discharge Plan
Departure
Patient Disposition: Home (Routine Discharge)
Date of Disposition: 07/05/24
Time of Disposition: 19:45
Patient with high blood pressure during this ER visit?: Yes
Condition: Good
Covid-19: Not Applicable
Discharge Problem:
Knee pain, right, Varicose veins of both lower extremities
Instructions: Varicose Veins (DC), Knee pain - ED discharge instructions
Prescriptions:
No Action
losartan 50 mg Tablet
50 mg PO HS
therapeutic multivitamin Tablet
1 tab PO DAILY
vitamin A-vitamin C-vit E-min Tablet
1 tab PO DAILY
guaifenesin [Mucinex] 600 mg Tablet Extended Release 12hr
600 mg PO HSPRN PRN (Reason: congestion)
Sciatiease
1 cap PO HS
aspirin 81 mg Tablet,Delayed Release (Dr/Ec)
81 mg PO DAILY Qty: 30 0RF
atorvastatin 40 mg Tablet
40 mg PO QPM Qty: 30 0RF
clopidogrel 75 mg Tablet
75 mg PO DAILY 20 Days Qty: 20 0RF
Referrals:
Jeffrey Longoria MD [Family Provider] - Follow up in 5-7 days
Activity Restrictions/Additional Instructions:
Return to the emergency department with any persistent/worsening pain, swelling, redness in the left knee or left lower extremity, fevers, chills, chest pain, shortness of breath, or any other concerns
-As discussed�your ultrasound showed no evidence of a blood clot of your left leg. It is possible that your pain is due to your varicose veins. You should keep left knee compressed with Jorgito bandage. You can also wear compression stockings that
you have at home. Continue to ice, elevate your left leg/knee and take Tylenol for pain.
-Follow-up with your primary care for further evaluation/management to ensure that symptoms are improving. If symptoms persist you may need to repeat ultrasound
Monitor your symptoms closely and return to the emergency department with any acute worsening/new symptoms or any other concerns
Interventions
Interventions:
*Risk Screen - Suicide Last Done: 07/05/24 13:40
*General Assessment Last Done: 07/05/24 13:40
*Neglect/Abuse Screening Last Done: 07/05/24 18:44
ED- Fall Risk Assessment Last Done: 07/05/24 18:45
*ED COVID-19 Vaccine History Last Done: 07/05/24 13:40
*Nursing Disposition Last Done: 07/05/24 20:12
ED-Musculoskeletal Assessment Last Done: 07/05/24 15:42
Discharge Date and Time
Discharge Date/Time: 07/05/24 20:13
Print Language: [email or web address]
[2024-07-05 18:44] VITALS: BP 134/69
== END 2024-07-05 20:13 | disposition home or self-care (01) ==
LOC: EMR 13:34
PROVIDERS: EMERGENCY PHYSICIAN Emergency Medicine; FAMILY PHYSICIAN Family Medicine
DX: M25.562 Pain in left knee (principal); I83.812 Varicose veins of left lower extremity with pain; E78.00 Pure hypercholesterolemia, unspecified; I12.9 Hypertensive chronic kidney disease with stage 1 through stage 4 chronic kidney disease, or unspecified chronic kidney disease; N18.9 Chronic kidney disease, unspecified; F41.9 Anxiety disorder, unspecified; F32.A Depression, unspecified; Z85.828 Personal history of other malignant neoplasm of skin; Z86.73 Personal history of transient ischemic attack (TIA), and cerebral infarction without residual deficits; Z98.2 Presence of cerebrospinal fluid drainage device; Z87.891 Personal history of nicotine dependence; Z91.048 Other nonmedicinal substance allergy status
CPT/HCPCS: 99284; 73564; 93971

== ENCOUNTER 2024-07-17 09:42 | Outpatient (RCR) | payer OTHER, SELFPAY | END 2024-07-17 23:59 | disposition home or self-care (01) | LOC: RPT 09:42 | PROVIDERS: ATTENDING PHYSICIAN Family Medicine | DX: I69.328 Other speech and language deficits following cerebral infarction (principal); I69.321 Dysphasia following cerebral infarction; Z73.6 Limitation of activities due to disability; R26.89 Other abnormalities of gait and mobility | CPT/HCPCS: 92507; 97530; 97535; 97537 ==

== ENCOUNTER 2024-07-24 10:08 | Outpatient (RCR) | payer OTHER, SELFPAY | END 2024-07-24 23:59 | disposition home or self-care (01) | LOC: RPT 10:08 | PROVIDERS: ATTENDING PHYSICIAN Family Medicine | DX: I69.328 Other speech and language deficits following cerebral infarction (principal); I69.321 Dysphasia following cerebral infarction; I63.033 Cerebral infarction due to thrombosis of bilateral carotid arteries; R26.89 Other abnormalities of gait and mobility; Z73.6 Limitation of activities due to disability | CPT/HCPCS: 92507; 97530; 97535; 97537 ==

== ENCOUNTER → 2024-09-23 11:02 | Outpatient (REF) | payer OTHER, SELFPAY | LOC: HWWDC 11:02 | PROVIDERS: ATTENDING PHYSICIAN Family Medicine; REFERRING PHYSICIAN Obstetrics & Gynecology | DX: Z12.31 Encounter for screening mammogram for malignant neoplasm of breast (principal) | CPT/HCPCS: 77063; 77067 ==